=== PATIENT | male | born 1970 | race Caucasian/White ===

== ENCOUNTER 2017-07-13 15:32 | Emergency (ER) | payer BC ==
[2017-07-13 15:40] VITALS: BP 129/82
--- NOTE | 2017-07-13 16:09 | RAD ---
INDICATION: Left ankle pain. TECHNIQUE: 3 views of the left ankle were obtained. FINDINGS: The bones are in normal alignment. No fracture is seen. Joint spaces appear maintained. IMPRESSION: NO EVIDENCE FOR FRACTURE.
--- NOTE | 2017-07-13 17:06 | UC ---
Lower Extremity/Ankle HPI - HPI Summary HPI Summary: Patient presents to the with CC of medial left foot pain which has been present x 3 weeks and not improving. 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 Denies injury or trauma. The pain is 4/10, intermittent, worse with walking, better with rest and improved with heat. He has never had pain before and is concerned with a tendinopathy or fracture. He is otherwise healthy. Denies history of PAD, PVD or diabetes. - History of Current Complaint Chief Complaint: UCLowerExtremity Stated Complaint: LEFT FOOT COMPLAINT Time Seen by Provider: 07/13/17 15:42 Hx Obtained From: Patient Onset/Duration: Sudden Onset Severity Initially: Mild Severity Currently: Mild Pain Intensity: 1 Pain Scale Used: 0-10 Numeric Aggravating Factor(s): Standing, Ambulation Alleviating Factor(s): Rest, Elevation Able to Bear Weight: Yes - Risk Factors Gout Risk Factors: Age Over 40, Male DVT Risk Factors: Negative Septic Arthritis Risk Factor: Negative - Allergies/Home Medications Allergies/Adverse Reactions: Allergies Allergy/AdvReac Type Severity Reaction Status Date / Time Bee Venom Allergy Anaphylatic Verified 07/13/17 15:40 Shock PMH/Surg Hx/FS Hx/Imm Hx Previously Healthy: Yes - Surgical History Surgical History: None - Family History Known Family History: Positive: Unknown - Social History Occupation: Employed Full-time Lives: With Family Alcohol Use: None Substance Use Type: None Smoking Status (MU): Heavy Every Day Tobacco Smoker Type: Cigarettes Amount Used/How Often: 1 ppd Length of Time of Smoking/Using Tobacco: 20 years Household Exposure Type: Cigarettes - Immunization History Most Recent Influenza Vaccination: no 2017 Most Recent Tetanus Shot: unknown Review of Systems Constitutional: Negative Skin: Negative Respiratory: Negative Cardiovascular: Negative Gastrointestinal: Negative Motor: Negative Neurovascular: Negative Musculoskeletal: Arthralgia - medial left foot pain Neurological: Negative Psychological: Negative Is Patient Immunocompromised?: No All Other Systems Reviewed And Are Negative: Yes Physical Exam Triage Information Reviewed: Yes Appearance: Well-Appearing, Well-Nourished Vital Signs: Initial Vital Signs Temp 97.8 F 07/13/17 15:36 Pulse 71 07/13/17 15:36 Resp 14 07/13/17 15:36 BP 129/82 07/13/17 15:36 Pulse Ox 100 10/04/17 15:36 Vital Signs Reviewed: Yes Eye Exam: Normal Eyes: Positive: Conjunctiva Clear Neck exam: Normal Neck: Positive: Supple, Nontender, No Lymphadenopathy Respiratory Exam: Normal Respiratory: Positive: Chest non-tender Cardiovascular Exam: Normal Cardiovascular: Positive: RRR Musculoskeletal Exam: Normal Musculoskeletal: Positive: Strength Intact Neurological Exam: Normal Neurological: Positive: Alert Psychological Exam: Normal Psychological: Positive: Normal Response To Family Skin Exam: Normal Lower Extremity Course/Dx - Course Course Of Treatment: Patient evaluated for medial foot pain. Xray negative. Likely tendinopathy. No erythema, claudication or signs of PVD or PAD. He is not a diabetic. No signs of tick bite, rash, warmth or discoloration to the area. Denies fevers, sweats, chills or other signs of a systemic illness. He is given instructions for rest, ice, heat and elevation. He is OK with discharge and will follow up with Dr. Krishna if symptoms worsen. Referral given. He is ambulating well. - Differential Dx/Diagnosis Differential Diagnosis/HQI/PQRI: Sprain, Strain, Tendonitis Provider Diagnoses: Tendonitis of L medial foot Discharge - Discharge Plan Condition: Stable Disposition: HOME Patient Education Materials: Tendinitis (ED) Referrals: Linwood Krishna MD [Medical Doctor] - No Primary Care Phys,NOPCP [Primary Care Provider] - Additional Instructions: Follow up with Dr. Krishna for worsening symptoms not improved with: Ibuprofen 600mg three times daily Moist heat to the the area Ice intermittently Rest as much as possible
== END 2017-07-13 16:44 | disposition home or self-care (01) ==
LOC: UCCORT 15:32
DX: M77.9 Enthesopathy, unspecified (principal); F17.210 Nicotine dependence, cigarettes, uncomplicated; Z91.030 Bee allergy status
CPT/HCPCS: 99211; G0463